=== PATIENT | female | born 1990 | race Two or more races ===

== ENCOUNTER 2019-11-11 14:12 | Emergency (ER) | payer MEDICAID ==
[~2019-11-11] VITALS: Ht 172.7 cm; Wt 110.2 kg
[2019-11-11 14:57] LABS: Basophils # (auto) 0.1 uL; Basophils % (auto) 1.2 % (0.0-2.0); Eosinophils # (auto) 0.3 uL; Eosinophils % (auto) 3.3 % (0.0-7.0); Hematocrit 39.7 % (36.0-46.0); Hemoglobin 13.5 g/dL (12.2-16.2); Lymphocytes # (auto) 2.3 uL; Lymphocytes % (auto) 23.4 % (10.0-50.0); Mean Corpuscular Hemoglobin 28.9 pg (28.0-32.0); Mean Corpuscular Volume 85.1 fL (80.0-100.0); Monocytes # (auto) 0.7 uL; Neutrophils # (auto) 6.5 uL; Neutrophils % (auto) 65.1 % (37.0-80.0); Nucleated Red Blood Cells % 0.1 %; Platelet Count (auto) 282 10^3/uL (140-450); Red Blood Cells 4.66 10^6/uL (4.0-5.20)
[2019-11-11 15:14] LABS: Alanine Aminotransferase 51 U/L (13-56); Albumin 3.7 g/dL (3.4-5.0); Anion Gap 6 (5-15); Aspartate Aminotransferase 30 U/L (15-37); BUN/Creatinine Ratio 21.2; Blood Urea Nitrogen 14 mg/dL (7-18); Calcium 8.6 mg/dL (8.5-10.1); Carbon Dioxide 24 mmol/L (21-32); Chloride 109 mmol/L (98-107); GFR African American 136 mL/min; GFR Non-African American 113 mL/min; Glucose 93 mg/dL (74-106); Potassium 3.5 mmol/L (3.5-5.1); Sodium 139 mmol/L (136-145)
[2019-11-11] MEDS ORDERED: cefTRIAXone W LIDOCAINE 1 GM IM IM ONE (15:15)
[2019-11-11 15:17] LABS: INR 0.96 (0.9-1.15); Partial Thromboplastin Time 28.4 sec (23.64-32.05)
[2019-11-11 15:22] VITALS: BP 128/85
[2019-11-11 15:22] LABS: Alkaline Phosphatase 103 U/L (45-117); Bilirubin, Total 0.3 mg/dL (0.2-1.0); Total Protein 8.3 g/dL (6.4-8.2)
[2019-11-11] MEDS ORDERED: cefTRIAXone SOD 1,000 MG VL ONE (15:27)
[2019-11-11 15:46] LABS: Urine Bacteria FEW /hpf (None Seen); Urine Blood Negative /uL (Negative); Urine Mucus FEW (None Seen); Urine Specific Gravity 1.031 (1.001-1.035); Urine WBC 8 /hpf (0 - 5)
[2019-11-11 16:02] LABS: Alcohol, Urine < 3.0 mg/dL (0-5); Amphetamine Screen, Urine NEGATIVE (NEGATIVE); Barbiturate Scree,Urine NEGATIVE (NEGATIVE); Benzodiazephine Screen, Urine NEGATIVE (NEGATIVE); Cannabinoid Screen, Urine NEGATIVE (NEGATIVE); Cocaine Screen, Urine NEGATIVE (NEGATIVE); Opiate Scree,Urine NEGATIVE (NEGATIVE); Phencyclidine Screen, Urine NEGATIVE (NEGATIVE)
== END 2019-11-11 16:58 | disposition home or self-care (01) ==
LOC: ER 14:29
DX: R07.2 Precordial pain (principal); N39.0 Urinary tract infection, site not specified
CPT/HCPCS: 36415; 71046; 80053; 80307; 81001; 84484; 85025; 85610; 85730; 93005; 96372; 99284; J0696

== ENCOUNTER 2020-01-16 17:54 | Inpatient (IN) | payer MEDICAID ==
[~2020-01-16] VITALS: Ht 167.6 cm; Wt 110.1 kg
[2020-01-16] MEDS ORDERED: PANTOPRAZOLE 40 MG/10 ML VIAL INJ IV STA (18:05)
[2020-01-16] MEDS ORDERED: SODIUM CHLORIDE 0.9% 1,000 ML IVB ONE (18:05)
[2020-01-16] MEDS ORDERED: MORPHINE SULFATE 4 MG/ML SYR/VIAL IV ONE (18:15)
[2020-01-16] MEDS ORDERED: ONDANSETRON HCL 4 MG/2 ML VIAL IV ONE ×2 (18:15→21:15)
[2020-01-16 19:11] LABS: Basophils # (auto) 0.1 10 ^3/uL (0-0.2); Basophils % (auto) 0.9 % (0.0-2.0); Eosinophils # (auto) 0.1 10 ^3/uL (0-0.8); Eosinophils % (auto) 1.6 % (0.0-7.0); Hematocrit 37.4 % (36.0-46.0); Hemoglobin 12.7 g/dL (12.2-16.2); Lymphocytes % (auto) 33.3 % (10.0-50.0); Mean Corpuscular Hemoglobin 28.9 pg (28.0-32.0); Mean Corpuscular Hgb Conc. 34.1 g/dL (32.0-36.0); Monocytes # (auto) 0.7 10 ^3/uL (0-1.3); Neutrophils # (auto) 5.1 10 ^3/uL (1.6-8.6); Neutrophils % (auto) 56.2 % (37.0-80.0); Platelet Count (auto) 242 10^3/uL (140-450); Red Cell Distribution Width 13.8 % (11.8-14.3)
[2020-01-16 19:27] LABS: Albumin 3.5 g/dL (3.4-5.0); Calcium 8.1 mg/dL (8.5-10.1); Potassium 3.7 mmol/L (3.5-5.1)
[2020-01-16 19:30] LABS: BUN/Creatinine Ratio 16.7; Bilirubin, Total 0.3 mg/dL (0.2-1.0); Total Protein 7.3 g/dL (6.4-8.2)
[2020-01-16 20:32] LABS: Urine Bacteria NONE SEEN /hpf (None Seen); Urine Blood Negative /uL (Negative); Urine WBC 14 /hpf (0 - 5)
[2020-01-16] MEDS ORDERED: HYDROmorphone HCL 2 MG/ML VL IV ONE (21:15)
[2020-01-16] MEDS ORDERED: cefTRIAXone 1GM/50ML D5W 50 ML IV ONE (21:30)
[2020-01-16] MEDS ORDERED: ACETAMINOPHEN 325 MG TAB PO PRN (23:00)
[2020-01-16] MEDS ORDERED: TEMAZEPAM 15 MG CAP PO PRN (23:00)
[2020-01-17] VITALS (7 sets, daily range): BP systolic 109–161; BP diastolic 68–89
--- NOTE | 2020-01-17 01:19 | NUR ---
MS admit from ER [place] Kelly admitted to tele/MS after SBAR received. Patient oriented to TIMMY CACERES, RN primary RN, unit, room, bed, and unit policies regarding patient care and visiting hours. Patient weighed by bedscale and encouraged to call if they need something. All questions and concerns addressed, patient verbalized understanding. Note: PATIENT IS ALERT AND ORIENTED, AMBULATORY, DENIES ANY ABDOMINAL PAIN AT THIS TIME,INSTRUCTED ON DIET WHICH IS CLEAR LIQUIDS.
[2020-01-17] MEDS ORDERED: INFLUENZA QUAD 2019-2020 0.5ml SYRG IM ONE (01:45)
[2020-01-17 05:12] LABS: Basophils # (auto) 0.1 10 ^3/uL (0-0.2); Basophils % (auto) 0.9 % (0.0-2.0); Eosinophils # (auto) 0.1 10 ^3/uL (0-0.8); Hematocrit 39.2 % (36.0-46.0); Hemoglobin 13.2 g/dL (12.2-16.2); Lymphocytes # (auto) 2.2 10 ^3/uL (0.4-5.4); Lymphocytes % (auto) 30.5 % (10.0-50.0); Mean Corpuscular Hemoglobin 28.9 pg (28.0-32.0); Mean Corpuscular Hgb Conc. 33.7 g/dL (32.0-36.0); Mean Corpuscular Volume 85.6 fL (80.0-100.0); Monocytes # (auto) 0.5 10 ^3/uL (0-1.3); Monocytes % (auto) 6.6 % (0.0-12.0); Neutrophils # (auto) 4.3 10 ^3/uL (1.6-8.6); Platelet Count (auto) 225 10^3/uL (140-450); Red Blood Cells 4.58 10^6/uL (4.0-5.20); Red Cell Distribution Width 13.7 % (11.8-14.3); White Blood Cell 7.2 10^3/uL (4.4-10.8)
[2020-01-17 05:29] LABS: BUN/Creatinine Ratio 16.4; Calcium 8.5 mg/dL (8.5-10.1); Potassium 3.9 mmol/L (3.5-5.1)
[2020-01-17] MEDS: HYDROcodone-ACET 5/325MG TAB PO PRN (05:45)
--- NOTE | 2020-01-17 08:00 | NUR ---
RECEIVED PATIENT ALERT AND ORIENTED X4, NOT IN DISTRESS, CLEAR LUNG SOUNDS RR=18 DEEP BREATHING AND COUGHING WAS ENCOURAGED, DEMONSTRATED WELL, HEART R=78, ABDOMEN SOFT WITH ACTIVE BS, LAST BM=01/17/20 REPORTED, SKIN INTACT WARM TO TOUCH, RADIAL AND PEDAL PULSES PALPABLE, CAP REFILL <3 SECONDS, RESTING ON BED, HEAD OF BED ELEVATED, BED ON LOW POSITION, RAILS UP X2, CALL LIGHT ON REACH, WILL CONTINUE MONITORING.
[2020-01-17] MEDS: PANTOPRAZOLE 40 MG/10 ML VIAL INJ IV SCH (10:26)
[2020-01-17] MEDS: ONDANSETRON HCL 4 MG/2 ML VIAL IV PRN ×2 (13:38→19:52)
[2020-01-17] MEDS: MORPHINE SULFATE 4 MG/ML SYR/VIAL IV PRN ×2 (13:39→19:52)
[2020-01-17] MEDS ORDERED: DICYCLOMINE HCL 10 MG CAP PO PRN (14:15)
--- NOTE | 2020-01-17 15:11 | NUR ---
GI CONSULT WAS DONE, PENDING PELVIC US ORDERED BY GI DR., US WAS CONTACTED FOR UPDATES AND FOLLOW UP, WILL CONTINUE MONITORING.
--- NOTE | 2020-01-17 19:25 | NUR ---
RESTING ON BED, NOT IN DISTRESS, HEAD OF BED ELEVATED, BED ON LOW POSITION, RAILS UP X2, CALL LIGHT ON REACH, REPORT WAS GIVEN TO THE STILL OPERATOR GIN RN.
[2020-01-17] MEDS: cefTRIAXone 1GM/50ML D5W 50 ML IV SCH (21:05)
[2020-01-18 05:00] VITALS: BP 122/78
--- NOTE | 2020-01-18 08:00 | NUR ---
RECEIVED PATIENT ALERT AND ORIENTED X4, NOT IN DISTRESS, CLEAR SOUNDS IN BILATERAL LUNG LOBES, RR=20, DEEP BREATHING AND COUGHING ENCOURAGED, DEMONSTRATED WELL, NORMAL HEART BEAT AND RHYTHM, R=92, DENIED CHEST PAIN AND SOB, ABDOMEN SOFT WITH ACTIVE BS, LAST BM=01/16/20 REPORTED, SKIN INTACT WARM TO TOUCH, RADIAL AND PEDAL PULSES PALPABLE, CAP REFILL <3 SECONDS, RESTING ON BED, HEAD OF BED ELEVATED, BED ON LOW POSITION, RAILS UP X2, CALL LIGHT ON REACH, WILL CONTINUE MONITORING.
[2020-01-18 09:00] VITALS: BP 128/87
[2020-01-18] MEDS: PANTOPRAZOLE 40 MG/10 ML VIAL INJ IV SCH (09:43)
[2020-01-18] MEDS: ONDANSETRON HCL 4 MG/2 ML VIAL IV PRN ×2 (09:44→15:42)
[2020-01-18] MEDS: MORPHINE SULFATE 4 MG/ML SYR/VIAL IV PRN (09:44)
[2020-01-18 13:00] VITALS: BP 129/86
[2020-01-18] MEDS ORDERED: MORPHINE SULFATE 4 MG/ML SYR/VIAL IV PRN (13:30)
--- NOTE | 2020-01-18 14:00 | NUR ---
AERODYNAMICS TEACHER CONSULT WAS DONE, FOLLOW UP OUT PATIENT WAS SUGGESTED REPORTED, NOT 9IN DISTRESS, RESTING ON BED, WILL CONTINUE MONITORING.
--- NOTE | 2020-01-18 14:40 | NUR ---
DR. SPRINGER WAS PAGED FOR NOTIFICATION OF FITTER UP FOLLOW UP AND UPDATED, WAITING FOR CALL BACK, WILL CONTINUE MONITORING.
--- NOTE | 2020-01-18 19:20 | NUR ---
Opening Shift Note Received report from emilia Nuñez RN. Assumed care of patient, awake and alert. No S/S of distress/SOB but c/o of headache. Will give pain medication as ordered. Instructed on POC and to call for assist PRN, will continue to monitor for changes Q1hr and PRN.
--- NOTE | 2020-01-18 19:26 | NUR ---
RESTING ON BED, NOT IN DISTRESS, HEAD OF BED ELEVATED, BED ON LOW POSITION, RAILS UP X2, CALL LIGHT ON REACH, REPORT WAS GIVEN TO THE ORNAMENTAL METAL ERECTOR APPRENTICE RN.
[2020-01-18 22:00] VITALS: BP 112/73
[2020-01-18] MEDS: cefTRIAXone 1GM/50ML D5W 50 ML IV SCH (22:05)
--- NOTE | 2020-01-18 23:00 | NUR ---
IV removal IV to left AC infiltrated. IV DC'd with sterile technique, catheter fully intact. Pressure dressing applied to site. Patient tolerated procedure well.
--- NOTE | 2020-01-18 23:30 | NUR ---
IV insertion IV access obtained, via clean sterile technique by inserting 22 gauge catheter at right forearm after first attempt. IV secured properly. No trauma to site. Patient tolerated procedure well.
[2020-01-19] MEDS: HYDROcodone-ACET 5/325MG TAB PO PRN (02:30)
--- NOTE | 2020-01-19 02:30 | NUR ---
Given pain medication for pain to head and abd. Will monitor.
--- NOTE | 2020-01-19 04:44 | NUR ---
Patient is resting in bed with eyes closed, no distress noted
[2020-01-19 05:00] VITALS: BP 116/77
--- NOTE | 2020-01-19 08:00 | NUR ---
RECEIVED PATIENT ALERT AND ORIENTED X4, NOT IN DISTRESS, CLEAR LUNG SOUNDS IN BILATERAL UPPER AND LOWER LOBES RR=18 DEEP BREATHING AND COUGHING WAS ENCOURAGED, DEMONSTRATED WELL, HEART R=92, ABDOMEN SOFT WITH ACTIVE BS, LAST BM=01/16/20 REPORTED, SKIN INTACT WARM TO TOUCH, RADIAL AND PEDAL PULSES PALPABLE, CAP REFILL <3 SECONDS, RESTING ON BED, HEAD OF BED ELEVATED, BED ON LOW POSITION, RAILS UP X2, CALL LIGHT ON REACH, WILL CONTINUE MONITORING.
[2020-01-19 09:00] VITALS: BP 115/85
[2020-01-19] MEDS: PANTOPRAZOLE 40 MG/10 ML VIAL INJ IV SCH (10:06)
[2020-01-19] MEDS: ONDANSETRON HCL 4 MG/2 ML VIAL IV PRN (10:07)
[2020-01-19] MEDS ORDERED: KETOROLAC TROMETH 15 mg/ml 1ML VL IV ONE (10:15)
--- NOTE | 2020-01-19 11:30 | NUR ---
OUT OF BED AND AMBULATING ENCOURAGED, AMBULATED AROUND THE UNIT X2, BACK TO BED, RESTING AND WATCHING TV, PENDING D/C HOME ORDERED, WILL CONTINUE MONITORING.
[2020-01-19 13:00] VITALS: BP 113/71
--- NOTE | 2020-01-19 14:00 | NUR ---
REQUESTED EXCUSE FORM FROM WORK, DR. ALVARADO WAS NOTIFIED REQUESTED, PAPER IS PENDING REPORTED BY DR. SPRINGER.
--- NOTE | 2020-01-19 14:19 | NUR ---
NUTRITION ASSESSMENT NOTES Please refer to link notes of nutrition screen form filed under the intervention section of the plan of care for further details. Est. Energy Needs: 8985-1352 kcal (14-18 kcal/kg BW). Est. Protein Needs: 58-72 gms/day (0.8-1.0 gms/kg Adj.BW). Will continue to monitor pertinent labs and reassess nutrient need prn Addendum: 01/19/20 at [address] Amended: Links added.
--- NOTE | 2020-01-19 16:30 | NUR ---
WAITING FOR RELEASE FROM WORK PAPER, DR. SPRINGER WAS PAGED X3, WAITING FOR CALL BACK.
--- NOTE | 2020-01-19 16:47 | NUR ---
D/C EDUCATION AND INFORMATION WAS PROVIDED, VERBALIZED UNDERSTANDING, D/C RT. FA IV SITE, TOLERATED WELL, VS T=97.6 RR=16, SAT=96% P=77 DB=640/71, NOT IN DISTRESS, DENIED PAIN, WC PROVIDED, D/C HOME WALING, TOOK ALL BELONGINGS AND LEFT NOTHING BEHIND.
== END 2020-01-19 16:45 | disposition home or self-care (01) | DRG 532 ==
LOC: ER 17:54 → OVERFLOW 17:55 → WEST WING 23:35
PROVIDERS: ADMIT Nurse Practitioner; ATTEND Internal Medicine
DX: D25.9 Leiomyoma of uterus, unspecified (principal); E66.01 Morbid (severe) obesity due to excess calories; R11.0 Nausea; I10 Essential (primary) hypertension; N92.0 Excessive and frequent menstruation with regular cycle; N94.6 Dysmenorrhea, unspecified; Z68.39 Body mass index [BMI] 39.0-39.9, adult
CPT/HCPCS: 36415; 74176; 76705; 76856; 80048; 80053; 81001; 81025; 83690; 84702; 85025; 87086; 96365; 96375; 96376; C9113; G0378; J0696; J2405

== ENCOUNTER 2020-10-18 18:22 | Emergency (ER) | payer MEDICAID ==
[~2020-10-18] VITALS: Ht 172.7 cm; Wt 112.0 kg
[2020-10-18 19:56] LABS: Urine Bacteria FEW /hpf (None Seen); Urine Blood Negative /uL (Negative); Urine Mucus FEW (None Seen); Urine Specific Gravity 1.021 (1.001-1.035); Urine WBC 8 /hpf (0 - 5)
[2020-10-18 22:31] LABS: Basophils # (auto) 0.1 10 ^3/uL (0-0.2); Basophils % (auto) 1.1 % (0.0-2.0); Eosinophils # (auto) 0.3 10 ^3/uL (0-0.8); Eosinophils % (auto) 2.5 % (0.0-7.0); Hematocrit 32.4 % (36.0-46.0); Hemoglobin 9.9 g/dL (12.2-16.2); Lymphocytes # (auto) 3.4 10 ^3/uL (0.4-5.4); Lymphocytes % (auto) 32.6 % (10.0-50.0); Mean Corpuscular Hemoglobin 22.4 pg (28.0-32.0); Mean Corpuscular Hgb Conc. 30.5 g/dL (32.0-36.0); Mean Corpuscular Volume 73.4 fL (80.0-100.0); Monocytes # (auto) 0.7 10 ^3/uL (0-1.3); Monocytes % (auto) 6.4 % (0.0-12.0); Neutrophils # (auto) 5.9 10 ^3/uL (1.6-8.6); Neutrophils % (auto) 57.4 % (37.0-80.0); Platelet Count (auto) 317 10^3/uL (140-450); Red Blood Cells 4.41 10^6/uL (4.0-5.20); Red Cell Distribution Width 15.8 % (11.8-14.3); White Blood Cell 10.3 10^3/uL (4.4-10.8)
[2020-10-18 22:53] LABS: Potassium 3.9 mmol/L (3.5-5.1)
[2020-10-18 23:00] LABS: Albumin 3.6 g/dL (3.4-5.0); BUN/Creatinine Ratio 15.8; Bilirubin, Total 0.2 mg/dL (0.2-1.0); Calcium 8.4 mg/dL (8.5-10.1); Magnesium 2.3 mg/dL (1.6-2.6); Total Protein 7.7 g/dL (6.4-8.2)
[2020-10-19] MEDS ORDERED: cefTRIAXone SOD 1,000 MG VL ONE (04:21)
[2020-10-19] MEDS ORDERED: ACETAMINOPHEN 325 MG TAB PO ONE (06:15)
[2020-10-19] MEDS ORDERED: ONDANSETRON ODT 4 MG TAB PO ONE (06:15)
[2020-10-19 07:37] VITALS: BP 168/95
== END 2020-10-19 07:41 | disposition home or self-care (01) ==
LOC: ER 18:22
DX: K82.0 Obstruction of gallbladder (principal); N39.0 Urinary tract infection, site not specified
CPT/HCPCS: 36415; 76705; 80053; 81001; 83690; 83735; 85025; 99284; J0696; Q0162

== ENCOUNTER 2021-10-08 17:42 | Emergency (ER) | payer MEDICAID ==
[~2021-10-08] VITALS: Ht 172.7 cm; Wt 108.0 kg
[2021-10-08 20:02] LABS: Urine Bacteria NONE SEEN /hpf (None Seen); Urine Blood Negative /uL (Negative); Urine Specific Gravity 1.017 (1.001-1.035); Urine WBC 12 /hpf (0 - 5)
[2021-10-08 22:21] LABS: Basophils # (auto) 0.1 10 ^3/uL (0-0.2); Eosinophils # (auto) 0.1 10 ^3/uL (0-0.8); Lymphocytes # (auto) 2.3 10 ^3/uL (0.4-5.4); Monocytes # (auto) 0.6 10 ^3/uL (0-1.3)
[2021-10-08 22:25] LABS: Basophils % (auto) 0.7 % (0.0-2.0); Eosinophils % (auto) 1.6 % (0.0-7.0); Hemoglobin 12.1 g/dL (12.2-16.2); Mean Corpuscular Hemoglobin 24.3 pg (28.0-32.0); Mean Corpuscular Hgb Conc. 31.9 g/dL (32.0-36.0); Monocytes % (auto) 6.9 % (0.0-12.0); Neutrophils % (auto) 65.8 % (37.0-80.0); White Blood Cell 9.1 10^3/uL (4.4-10.8)
[2021-10-08 22:31] LABS: Red Cell Distribution Width 25.9 % (11.8-14.3)
[2021-10-08 22:37] LABS: INR 0.99 (0.9-1.15)
[2021-10-08 22:42] LABS: Albumin 3.6 g/dL (3.4-5.0); Magnesium 2.3 mg/dL (1.6-2.6); Potassium 4.5 mmol/L (3.5-5.1)
[2021-10-08 22:45] LABS: Bilirubin, Total 0.3 mg/dL (0.2-1.0); Total Protein 7.6 g/dL (6.4-8.2)
[2021-10-08 23:04] VITALS: BP 143/95
== END 2021-10-08 23:48 | disposition home or self-care (01) ==
LOC: ER 17:42
DX: O16.1 Unspecified maternal hypertension, first trimester (principal); O23.41 Unspecified infection of urinary tract in pregnancy, first trimester; N39.0 Urinary tract infection, site not specified; Z3A.01 Less than 8 weeks gestation of pregnancy
CPT/HCPCS: 36415; 76705; 76801; 76817; 80053; 81001; 82570; 83605; 83615; 83690; 83735; 84156; 84702; 85025; 85610

== ENCOUNTER 2022-01-01 18:29 | Emergency (ER) | payer MEDICAID ==
[~2022-01-01] VITALS: Ht 172.7 cm; Wt 109.8 kg
[2022-01-01] MEDS ORDERED: ACETAMINOPHEN 325 MG TAB PO ONE (23:30)
[2022-01-02 00:02] LABS: Urine Bacteria FEW /hpf (None Seen); Urine Blood Negative /uL (Negative); Urine Hyaline Cast MOD /lpf (0 - 2); Urine Mucus FEW (None Seen); Urine Specific Gravity 1.023 (1.001-1.035); Urine WBC 21 /hpf (0 - 5)
[2022-01-02] MEDS ORDERED: NITR-87 PO (00:29)
[2022-01-02 01:11] VITALS: BP 145/92
== END 2022-01-02 01:13 | disposition home or self-care (01) ==
LOC: ER 18:31
DX: O23.42 Unspecified infection of urinary tract in pregnancy, second trimester (principal); N39.0 Urinary tract infection, site not specified; Z3A.18 18 weeks gestation of pregnancy
CPT/HCPCS: 76805; 81001

== ENCOUNTER 2022-02-18 17:42 | Observation (INO) | payer MEDICAID ==
[~2022-02-18] VITALS: Ht 172.7 cm; Wt 105.2 kg
[~2022-02-18 17:42] MED LIST: NITR-87 PO
[2022-02-18 17:56] VITALS: BP 117/93
[2022-02-18 19:08] LABS: Basophils # (auto) 0.1 10 ^3/uL (0-0.2); Basophils % (auto) 0.7 % (0.0-2.0); Eosinophils # (auto) 0.1 10 ^3/uL (0-0.8); Eosinophils % (auto) 1.4 % (0.0-7.0); Hematocrit 33.7 % (36.0-46.0); Hemoglobin 12.1 g/dL (12.2-16.2); Lymphocytes # (auto) 1.8 10 ^3/uL (0.4-5.4); Lymphocytes % (auto) 21.1 % (10.0-50.0); Mean Corpuscular Hemoglobin 32.2 pg (28.0-32.0); Mean Corpuscular Hgb Conc. 35.9 g/dL (32.0-36.0); Mean Corpuscular Volume 89.6 fL (80.0-100.0); Monocytes # (auto) 0.7 10 ^3/uL (0-1.3); Monocytes % (auto) 8.1 % (0.0-12.0); Neutrophils % (auto) 68.7 % (37.0-80.0); Nucleated Red Blood Cells % 0.1 %; Red Blood Cells 3.76 10^6/uL (4.0-5.20); Red Cell Distribution Width 13.4 % (11.8-14.3); White Blood Cell 8.7 10^3/uL (4.4-10.8)
[2022-02-18 19:15] LABS: Urine Bacteria MOD /hpf (None Seen); Urine Blood Negative /uL (Negative); Urine Mucus FEW (None Seen); Urine Specific Gravity 1.036 (1.001-1.035); Urine WBC 14 /hpf (0 - 5)
[2022-02-18 19:19] LABS: Albumin 2.6 g/dL (3.4-5.0); Calcium 8.5 mg/dL (8.5-10.1); Potassium 3.6 mmol/L (3.5-5.1)
[2022-02-18 19:22] LABS: BUN/Creatinine Ratio 18.5; Bilirubin, Total 0.4 mg/dL (0.2-1.0); Total Protein 7.3 g/dL (6.4-8.2)
[2022-02-19] MEDS ORDERED: cefTRIAXone SOD 1,000 MG VL IM ONE (00:15)
[2022-02-19] MEDS ORDERED: TERBUTALINE SULFATE 1 MG/ML 1ML VIAL SC PRN (00:15)
== END 2022-02-19 01:41 | disposition home or self-care (01) ==
LOC: ER 17:42 → TELE 23:11 → LDRP 23:15
PROVIDERS: ADMIT Obstetrics & Gynecology; ATTEND Obstetrics & Gynecology
DX: O23.42 Unspecified infection of urinary tract in pregnancy, second trimester (principal); O99.891 Other specified diseases and conditions complicating pregnancy; M54.50 Low back pain, unspecified; O99.512 Diseases of the respiratory system complicating pregnancy, second trimester; J45.909 Unspecified asthma, uncomplicated; O35.9XX0 Maternal care for (suspected) fetal abnormality and damage, unspecified, not applicable or unspecified; Z3A.24 24 weeks gestation of pregnancy
CPT/HCPCS: 36415; 59025; 76805; 80053; 81001; 81002; 84702; 85025; 94760; 96372; G0378; J0696; J3105

== ENCOUNTER 2022-05-31 22:07 | Emergency (ER) | payer MEDICAID ==
[~2022-05-31] VITALS: Ht 172.7 cm; Wt 102.3 kg
[2022-06-01 01:35] LABS: Eosinophils # (auto) 0.2 10 ^3/uL (0-0.8); Hemoglobin 8.9 g/dL (12.2-16.2); Monocytes # (auto) 0.6 10 ^3/uL (0-1.3); Neutrophils # (auto) 6.7 10 ^3/uL (1.6-8.6)
[2022-06-01 01:37] LABS: Basophils # (auto) 0 10 ^3/uL (0-0.2); Basophils % (auto) 0.5 % (0.0-2.0); Eosinophils % (auto) 1.7 % (0.0-7.0); Hematocrit 27.4 % (36.0-46.0); Lymphocytes # (auto) 1.5 10 ^3/uL (0.4-5.4); Lymphocytes % (auto) 17.2 % (10.0-50.0); Mean Corpuscular Hemoglobin 26.8 pg (28.0-32.0); Mean Corpuscular Hgb Conc. 32.5 g/dL (32.0-36.0); Mean Corpuscular Volume 82.3 fL (80.0-100.0); Monocytes % (auto) 6.3 % (0.0-12.0); Neutrophils % (auto) 74.3 % (37.0-80.0); Nucleated Red Blood Cells % 0.2 %; Red Blood Cells 3.33 10^6/uL (4.0-5.20); Red Cell Distribution Width 15.1 % (11.8-14.3)
[2022-06-01 01:53] LABS: Albumin 2.9 g/dL (3.4-5.0); BUN/Creatinine Ratio 17.1; Calcium 8.7 mg/dL (8.5-10.1); Magnesium 2.1 mg/dL (1.6-2.6); Potassium 3.7 mmol/L (3.5-5.1)
[2022-06-01 01:55] LABS: Bilirubin, Total 0.4 mg/dL (0.2-1.0); Total Protein 7.3 g/dL (6.4-8.2)
[2022-06-01] MEDS ORDERED: ACETAMINOPHEN 325 MG TAB PO ONE (03:00)
[2022-06-01 04:28] LABS: Urine Bacteria FEW /hpf (None Seen); Urine Blood 3+ /uL (Negative); Urine Mucus FEW (None Seen); Urine Specific Gravity 1.024 (1.001-1.035); Urine WBC 153 /hpf (0 - 5)
[2022-06-01 08:57] LABS: BUN/Creatinine Ratio 28.6; Calcium 6.9 mg/dL (8.5-10.1)
[2022-06-01] MEDS ORDERED: IOHEXOL 350 MG/ML 100ML IJ ONE (09:26)
[2022-06-01] MEDS ORDERED: CALCIUM CHL 100MG/ML 500 MG in D5W 5% 100 ML IV ONE (11:45)
[2022-06-01] MEDS ORDERED: POTASSIUM EFFERVESENT TAB 25 MEQ PO ONE (11:45)
[2022-06-01] MEDS ORDERED: ACETAMINOPHEN 500 MG TAB PO ONE (14:45)
[2022-06-01] MEDS ORDERED: CIPR-173 PO (16:04)
[2022-06-01] MEDS ORDERED: ACET-1803 PO (16:04)
[2022-06-01 16:07] VITALS: BP 138/88
== END 2022-06-01 16:09 | disposition home or self-care (01) ==
LOC: ER 22:07
DX: N39.0 Urinary tract infection, site not specified (principal); B34.9 Viral infection, unspecified; E83.51 Hypocalcemia; E87.6 Hypokalemia; D50.9 Iron deficiency anemia, unspecified; R79.1 Abnormal coagulation profile; E44.0 Moderate protein-calorie malnutrition; Z68.34 Body mass index [BMI] 34.0-34.9, adult
CPT/HCPCS: 36415; 71045; 71275; 80048; 80053; 81001; 83735; 83880; 84439; 84443; 84484; 85025; 85379; 93005; 96365; 99285; J7060; Q9967

== ENCOUNTER 2022-12-10 16:21 | Emergency (ER) | payer SELFPAY ==
[~2022-12-10] VITALS: Ht 172.7 cm; Wt 94.0 kg
[~2022-12-10 16:21] MED LIST changes: +ACET-1803 PO; +CIPR-173 PO
[2022-12-10 17:11] VITALS: BP 136/88
[2022-12-10] MEDS ORDERED: cefTRIAXone SOD 1,000 MG VL IM ONE (17:45)
[2022-12-10] MEDS ORDERED: KETOROLAC TROMETH 60MG/2ML VIAL IM ONE (17:45)
[2022-12-10] MEDS ORDERED: AZIT500T66 PO (17:46)
[2022-12-10] MEDS ORDERED: IBUP800T27 PO (17:46)
== END 2022-12-10 18:18 | disposition home or self-care (01) ==
LOC: ER 16:21
DX: J03.90 Acute tonsillitis, unspecified (principal); R53.1 Weakness; J45.909 Unspecified asthma, uncomplicated; I10 Essential (primary) hypertension; Z79.899 Other long term (current) drug therapy
CPT/HCPCS: 96372; 99284; J0696; J1885

== ENCOUNTER 2023-02-21 10:05 | Emergency (ER) | payer MEDICAID ==
[~2023-02-21] VITALS: Ht 172.7 cm; Wt 99.6 kg
[~2023-02-21 10:05] MED LIST changes: +AZIT500T66 PO; +IBUP800T27 PO
[2023-02-21 11:27] LABS: Basophils # (auto) 0.2 10 ^3/uL (0-0.2); Eosinophils # (auto) 0 10 ^3/uL (0-0.8); Nucleated Red Blood Cells % 0.1 %; White Blood Cell 9.5 10^3/uL (4.4-10.8)
[2023-02-21 11:29] LABS: Basophils % (auto) 1.9 % (0.0-2.0); Eosinophils % (auto) 0.5 % (0.0-7.0); Hematocrit 31.5 % (36.0-46.0); Hemoglobin 10.4 g/dL (12.2-16.2); Lymphocytes # (auto) 1.5 10 ^3/uL (0.4-5.4); Lymphocytes % (auto) 16.3 % (10.0-50.0); Mean Corpuscular Hemoglobin 21.2 pg (28.0-32.0); Mean Corpuscular Hgb Conc. 32.9 g/dL (32.0-36.0); Mean Corpuscular Volume 64.6 fL (80.0-100.0); Monocytes # (auto) 0.6 10 ^3/uL (0-1.3); Monocytes % (auto) 5.9 % (0.0-12.0); Neutrophils # (auto) 7.1 10 ^3/uL (1.6-8.6); Neutrophils % (auto) 75.4 % (37.0-80.0); Red Blood Cells 4.88 10^6/uL (4.0-5.20); Red Cell Distribution Width 19.1 % (11.8-14.3)
[2023-02-21 11:43] LABS: Urine Bacteria NONE SEEN /hpf (None Seen); Urine Blood 2+ /uL (Negative); Urine Specific Gravity 1.016 (1.001-1.035); Urine WBC 1 /hpf (0 - 5)
[2023-02-21] MEDS ORDERED: ACETAMINOPHEN 325 MG TAB PO ONE (12:15)
[2023-02-21 12:30] LABS: Albumin 3.7 g/dL (3.4-5.0); Calcium 9.2 mg/dL (8.5-10.1); Potassium 4.2 mmol/L (3.5-5.1)
[2023-02-21 12:35] LABS: BUN/Creatinine Ratio 16.1 (10.0-20.0); Bilirubin, Total 0.5 mg/dL (0.2-1.0); Total Protein 7.6 g/dL (6.4-8.2)
[2023-02-21 15:14] VITALS: BP 140/81
[2023-02-21] MEDS ORDERED: CYCL-839 PO (15:57)
[2023-02-21] MEDS ORDERED: CYCLOBENZAPRINE HCL 10 MG TAB PO ONE (16:00)
== END 2023-02-21 16:11 | disposition home or self-care (01) ==
LOC: ER 10:08
DX: O20.0 Threatened abortion (principal); Z3A.01 Less than 8 weeks gestation of pregnancy
CPT/HCPCS: 36415; 76801; 76817; 80053; 81001; 84702; 85025; 86850; 86900; 86901

== ENCOUNTER 2025-09-23 10:44 | Emergency (ER) | payer MEDICAID ==
[~2025-09-23] VITALS: Ht 165.1 cm; Wt 113.5 kg
[~2025-09-23 10:44] MED LIST changes: +CYCL-839 PO; +IBUP-1456 PO; -IBUP800T27 PO
[2025-09-23 12:47] LABS: Mean Corpuscular Volume 76.3 fL (80.0-100.0)
[2025-09-23 12:50] LABS: Hematocrit 29.4 % (36.0-46.0); Hemoglobin 9.3 g/dL (12.2-16.2); Mean Corpuscular Hemoglobin 24.0 pg (28.0-32.0); Nucleated Red Blood Cells % 0.1 %
[2025-09-23 13:00] VITALS: PULSE 89; RESP 16; TEMP 98.9; O2SAT 99
[2025-09-23 13:07] LABS: Alanine Aminotransferase 24 U/L (7-40); Albumin 3.7 g/dL (3.2-4.8); Anion Gap 9 (5-15); BUN/Creatinine Ratio 11.4 (10.0-20.0); Bilirubin, Total 0.3 mg/dL (0.2-1.0); Calcium 8.9 mg/dL (8.7-10.4); Carbon Dioxide 26 mmol/L (20-31); Chloride 107 mmol/L (98-107); Glucose 91 mg/dL (74-106); Potassium 4.2 mmol/L (3.5-5.1); Sodium 142 mmol/L (136-145); Total Protein 6.7 g/dL (5.7-8.2)
[2025-09-23 13:09] LABS: Alkaline Phosphatase 120 U/L (46-116); Blood Urea Nitrogen 8 mg/dL (9-23)
--- NOTE | 2025-09-23 13:40 | ED.PDOC ---
History of Present Illness HPI Comments 35-year-old female brought in by ambulance being one-week and with a chief complaint of pelvic pain. Patient reports having had a vaginal one week ago at 33 weeks patient states on having had being discharged and having an immediate onset of pelvic pain associated with abdomen distention and tenderness. Patient states on delivering the he inflammation and . Patient notes on currently have a severe headache. Denies any other symptoms at this time. Denies chills, fever, N/V/D, SOB, CP. No other associated symptoms, modifiers, recent injuries or sick contacts present at this time. Chief Complaint: Pelvic Pain Time Seen by MD: 13:05 Primary Care Provider: ALTHEA Reviewed Notes: Nurses Notes, Fruit Thinner Machine Operator Notes, Medications, Allergies Allergies: Coded Allergies: NO KNOWN ALLERGIES (Unverified , 10/18/20) Home Meds Active Scripts Cyclobenzaprine Hcl (Cyclobenzaprine Hcl) 10 Mg Tab, 10 MG PO BID PRN, #14 TAB Prov:LEANDRA KRISHNAMURTHY MD 02/21/23 Ibuprofen (Ibuprofen) 800 Mg Tab, 1 TAB PO TID, #30 TAB Prov:DIANA VARGHESE 12/10/22 Azithromycin (Azithromycin) 500 Mg Tab, 1 TAB PO DAILY, #5 TAB Prov:DIANA VARGHESE 12/10/22 Acetaminophen (Acetaminophen ER 8 Hour) 650 Mg Tab, 650 MG PO TID for 10 Days, #30 TAB Prov:STUART GALLOWAY MD 06/01/22 Ciprofloxacin Hcl (Cipro) 500 Mg Tab, 1 TAB PO BID for 10 Days, #20 TAB Prov:STUART GALLOWAY MD 06/01/22 Nitrofurantoin Monohydrate Mac (Macrobid) 100 Mg Cap, 100 MG PO BID, #14 CAP Prov:TOMMY AMOS MD 01/02/22 Information Source: Patient Mode of Arrival: EMS Severity: Moderate Timing: Hours Duration: Since onset, Hours Prehospital treatment: None Past Medical History PAST MEDICAL HISTORY: Asthma, HTN Surgical History: Denies all surgeries WHISKEY REGAUGER History: Ovarian Cysts, Uterine Fibroids, Other Family History Family History: Reviewed,noncontributory to illness Social History Smoker: Non-Smoker Alcohol: Denies ETOH Use Drugs: Denies Drug Use Lives In: Home Constitutional: denies: chills, diaphoresis, fatigue, fever, malaise, sweats, weakness, others EENTM: denies: blurred vision, double vision, ear bleeding, ear discharge, ear drainage, ear pain, ear ringing, eye pain, eye redness, hearing loss, mouth pain, mouth swelling, nasal discharge, nose bleeding, nose congestion, nose pain, photophobia, tearing, throat pain, throat swelling, voice changes, others Respiratory: denies: cough, hemoptysis, orthopnea, SOB at rest, shortness of breath, SOB with excertion, stridor, wheezing, others Cardiovascular: denies: chest pain, dizzy spells, diaphoresis, Dyspnea on exertion, edema, irregular heart beat, left arm pain, lightheadedness, palpitations, PND, syncope, others Gastrointestinal: reports: abdominal pain (Pelvic pain status post one week ); denies: abdomen distended, blood streaked bowels, constipated, diarrhea, dysphagia, difficulty swallowing, hematemesis, melena, nausea, poor appetite, poor fluid intake, rectal bleeding, rectal pain, vomiting, others Genitourinary: denies: abnormal vagina bleeding, burning, dyspareunia, dysuria, flank pain, frequency, hematuria, incontinence, pain, , vagina discharge, urgency, others Neurological: denies: dizziness, fainting, headache, left sided numbness, left sided weakness, numbness, paresthesia, pre-existing deficit, right sided numbness, right sided weakness, seizure, speech problems, tingling, tremors, weakness, others Musculoskeletal: denies: back pain, gout, joint pain, joint swelling, muscle pain, muscle stiffness, neck pain, others Integumetry: denies: bruises, change in color, change in hair/nails, dryness, laceration, lesions, lumps, rash, wounds, others Allergic/Immunocompromised: denies: Difficulty Healing, Frequent Infections, Hives, Itching, others Hematologic/Lymphatic: denies: anemia, blood clots, easy bleeding, easy bruising, swollen glands, others Endocrine: denies: excessive hunger, excessive sweating, excessive thirst, excessive urination, flushing, intolerance to cold, intolerance to heat, unexplained weight gain, unexplained weight loss, others Psychiatric: denies: anxiety, bipolar disorder, depression, hopeless, panic disorder, schizophrenia, sleepless, suicidal, others All Other Systems: Reviewed and Negative Physical Exam Exam Comments Abdomen distention General Appearance: No Apparent Distress, Normal HEENT: Normal ENT Inspection, Pharynx Normal, TMs Normal Neck: Full Range of Motion, Non-Tender, Normal, Normal Inspection Respiratory: Chest Non-Tender, Lungs Clear, No Accessory Muscle Use, No Respira tory Distress, Normal Breath Sounds Cardiovascular: No Edema, No JVD, No Murmur, No Gallop, Normal Peripheral Pulses, Regular Rate/Rhythm Breast Exam: Deferred Gastrointestinal: No Organomegaly, Non Tender, No Pulsatile Mass, Normal Bowel Sounds, Soft Genitalia: Deferred Pelvic: Deferred Rectal: Deferred Extremities: No calf tenderness, Normal capillary refill, Normal inspection, Normal range of motion, Non-tender, No pedal edema Musculoskeletal : Apperance: Normal Neurologic: Alert, stroke belt sander operator II-XII nml as Tested, No Motor Deficits, Normal Affect, Normal Mood, No Sensory Deficits Cerebellar Function: Normal Reflexes: Normal Skin: Dry, Normal Color, Warm Lymphatic: No Adenopathy Was a procedure done? Was a procedure done?: No Differential Dx Considerations may include: ACS, CVA, viral syndrome, electrolyte abnormality, retained products of conception X-Ray, Labs, Meds, VS Vital Signs Date Time Temp Pulse Resp B/P (MAP) Pulse Ox O2 Delivery O2 Flow Rate FiO2 09/23/25 18:20 84 12 147/95 (112) 95 09/23/25 16:00 84 13 142/95 (111) 98 09/23/25 14:00 84 13 142/95 (111) 98 09/23/25 13:00 89 16 99 Nasal Cannula* 2 28 09/23/25 13:00 98.9 89 16 135/92 (106) 99 98.9 09/23/25 11:20 98.7 110 24 162/98 97 98.7 Lab Test 09/23/25 15:00 09/23/25 11:55 Range/Units Urine Color Light-orange Yellow Urine Clarity Clear Clear Urine pH 7.0 5.0-9.0 Urine Specific [place] 1.020 1.001-1.035 Urine Protein Trace H Negative Urine Ketones Negative Negative Urine Blood 3+ H Negative /uL Urine Nitrite Negative Negative Urine Bilirubin Negative Negative Urine Urobilinogen Normal Negative mg/dL Urine Leukocyte Esterase 2+ Negative /uL Urine RBC 270 0 - 4 /hpf Urine Microscopic WBC 34 H 0-5 /HPF Urine Squamous Epithelial Cells Few <5 /hpf Urine Bacteria None seen None Seen /hpf Urine Glucose Normal Normal mg/dL White Blood Count 6.8 4.4-10.8 10^3/uL Red Blood Count 3.86 L 4.0-5.20 10^6/uL Hemoglobin 9.3 L 12.2-16.2 g/dL Hematocrit 29.4 L 36.0-46.0 % Mean Corpuscular Volume 76.3 L 80.0-100.0 fL Mean Corpuscular Hemoglobin 24.0 L 28.0-32.0 pg Mean Corpuscular Hemoglobin Concent 31.5 L 32.0-36.0 g/dL Red Cell Distribution Width 18.7 H 11.8-14.3 % Platelet Count 308 140-450 10^3/uL Mean Platelet Volume 9.0 6.9-10.8 fL Neutrophils (%) (Auto) 72.8 37.0-80.0 % Lymphocytes (%) (Auto) 16.7 10.0-50.0 % Monocytes (%) (Auto) 6.8 0.0-12.0 % Eosinophils (%) (Auto) 2.9 0.0-7.0 % Basophils (%) (Auto) 0.8 0.0-2.0 % Neutrophils # (Auto) 5.0 1.6-8.6 10 ^3/uL Lymphocytes # (Auto) 1.1 0.4-5.4 10 ^3/uL Monocytes # (Auto) 0.5 0-1.3 10 ^3/uL Eosinophils # (Auto) 0.2 0-0.8 10 ^3/uL Basophils # (Auto) 0.1 0-0.2 10 ^3/uL Nucleated Red Blood Cells 0.1 % Sodium Level 142 136-145 mmol/L Potassium Level 4.2 3.5-5.1 mmol/L Chloride Level 107 98-107 mmol/L Carbon Dioxide Level 26 20-31 mmol/L Anion Gap 9 5-15 Blood Urea Nitrogen 8 L 9-23 mg/dL Creatinine 0.70 0.550-1.02 mg/dL Glomerular Filtration Rate Calc 116 >90 mL/min BUN/Creatinine Ratio 11.4 10.0-20.0 Serum Glucose 91 74-106 mg/dL Lactic Acid Level 0.8 0.4-2.0 mmol/L Calcium Level 8.9 8.7-10.4 mg/dL Total Bilirubin 0.3 0.2-1.0 mg/dL Aspartate Amino Transferase (AST) 19 13-40 U/L Alanine Aminotransferase (ALT) 24 7-40 U/L Alkaline Phosphatase 120 H 46-116 U/L Total Protein 6.7 5.7-8.2 g/dL Albumin 3.7 3.2-4.8 g/dL Current Medications Medications (Trade) Dose Ordered Sig/Venkat Route Start Time Stop Time Status Last Admin Ketorolac Tromethamine (Toradol Injection) 15 mg ONCE ONCE IV 09/23/25 18:30 09/23/25 18:31 DC 09/23/25 18:26 Time of 1ST Reevaluation: 13:35 Reevaluation 1ST: Unchanged Patient Education/Counseling: Diagnosis, Treatment, Prognosis Family Education/Counseling: No Family Present SEPSIS Sepsis Screen Date sepsis recognized/suspect: Sep 23, 2025 Time Sepsis recognized/suspect: 1044 Recent Procedure: Yes Respiratory Rate >20: Yes Heart Rate >90: Yes Temp<36 C (96.8 F) or >38.3 C: No SBP <90 or MAP <65 mmHG: No New Acute Mental Status Change: No Is the patient on CPAP, BIPAP,: No Physician Orders Blood Culture (09/23/25 11:33) Ct Ab Pel With Iv Con Only (09/23/25 14:59) Pelvic (09/23/25 17:28) Morphine Sulfate Injection (09/23/25 19:00) Ondansetron Hcl (Zofran) (09/23/25 19:00) Vital Signs Date Time Temp Pulse Resp B/P (MAP) Pulse Ox O2 Delivery O2 Flow Rate FiO2 09/23/25 18:20 84 12 147/95 (112) 95 09/23/25 16:00 84 13 142/95 (111) 98 09/23/25 14:00 84 13 142/95 (111) 98 09/23/25 13:00 89 16 99 Nasal Cannula* 2 28 09/23/25 13:00 98.9 89 16 135/92 (106) 99 98.9 09/23/25 11:20 98.7 110 24 162/98 97 98.7 Laboratory Tests Test 09/23/25 11:55 Lactic Acid Level 0.8 mmol/L (0.4-2.0) White Blood Count 6.8 10^3/uL (4.4-10.8) Medications Medications Dose Ordered Sig/Venkat Route Start Time Stop Time Status Last Admin Dose Admin Ketorolac Tromethamine 15 mg ONCE ONCE IV 09/23/25 18:30 09/23/25 18:31 DC 09/23/25 18:26 Departure 1 Departure Time of Disposition: 18:56 (Patient's workup is benign however patient is having intractable pain. Using shared decision-making the the patient was offered admission to the hospital. Patient NSAID is going to leave and go to [place] where she gave and where her child is currently in the the NICU. ) Impression: Primary Impression: Intractable abdominal pain Additional Impressions: complication Lesion of left [place] kidney Disposition: 01 HOME / SELF CARE / HOMELESS Condition: Serious Additional Instructions: It is important that you follow up with your doctors MAHNAZ. If your symptoms worsen then please return to the ER. Discharged With: Booth Cashier Critical Care Note Critical Care Time?: No Stability Stability form required: No I personally scribed for ONESIMO CUEVAS MD ([email or web address]) on 09/23/25 at 13:40. Electronically submitted by Dionicio Arana ([email or web address]). ONESIMO CUEVAS MD Sep 23, 2025 13:40
[2025-09-23 15:25] LABS: Urine Protein, UAD TRACE (Negative)
[2025-09-23] MEDS ORDERED: IOHEXOL 300 MG/ML 100ML BOTTLE IJ ONE (16:02)
--- NOTE | 2025-09-23 16:53 | DVH ---
Exam: CT CT AB PEL WITH IV CON ONLY History: abdominal pain, recent vag delivery Comparison Study: None TECHNIQUE: Multidetector CT of the abdomen and pelvis with IV contrast. Axial, coronal and sagittal multiplanar reformats were obtained from the axial data set by the technologist. Radiation Dose Information: CT Dose: CTDI volume is 27.22 mGy. Dose-length product is 1537.58 mGy*cm FINDINGS: Minimal bibasilar atelectasis. Partially visualized heart is unremarkable. Mild hepatomegaly with hepatic steatosis. Mild splenomegaly. Otherwise, liver, spleen, gallbladder, pancreas and adrenal glands are unremarkable. 2 cm left renal hypodense lesion which does not measure as simple fluid. Otherwise, kidneys, ureters and urinary bladder are unremarkable. Heterogeneous appearance of the uterus. Endometrium appears heterogeneous and thickened of the 22 mm. Bilateral ovaries unremarkable. Stomach is unremarkable. Small bowel loops are unremarkable. Appendix is unremarkable. Small to moderate amount of fecal material within the colon. No evidence of intraperitoneal free air or free fluid. No evidence of aortic aneurysm or dissection. Shotty mesenteric lymph nodes. The soft tissues are unremarkable. Tiny fat containing umbilical hernia. No evidence of acute osseous abnormalities. IMPRESSION: Heterogeneous Uterus with a Heterogeneously thickened endometrium. Ultrasound is recommended for further evaluation. 2 cm left renal hypodense lesion which does not measure simple fluid. Renal ultrasound is recommended for further evaluation. Hepatomegaly with hepatic steatosis.
[2025-09-23 18:20] VITALS: BP 147/95; PULSE 84; RESP 12; O2SAT 95
[2025-09-23] MEDS: KETOROLAC TROMETH 30 MG/ML 1ML VIAL IV ONE (18:26)
--- NOTE | 2025-09-23 18:39 | DVH ---
INDICATION: better evaluate ct findings, status post vaginal delivery TECHNIQUE: Multiple real-time grayscale transabdominal sonographic images along with color and duplex Doppler of the uterus and ovaries were obtained. COMPARISON: US PELVIS COMPLETE on DOS: 08/11/24 FINDINGS: The uterus measures 16.2 x 8.2 x 7.2 cm. Endometrium is thickened, measuring 37 mm. There is fluid and debris within the endometrium, likely in keeping with blood products. No evidence of retained products of conception. Right ovary measures 4.5 x 2.7 x 2.8 cm with normal Doppler color flow Left ovary measures 5.8 x 3.2 x 3.9 cm with normal Doppler color flow No free fluid IMPRESSION: Thickened endometrium with debris and likely blood products. No evidence of retained products of conception. Normal sonographic appearance of the ovaries
[2025-09-23] MEDS ORDERED: ONDANSETRON HCL 4 MG/2 ML VIAL IV ONE (19:00)
[2025-09-23] MEDS ORDERED: MORPHINE SULFATE 4 MG/ML SYR/VIAL IV ONE (19:00)
== END 2025-09-23 19:46 | disposition home or self-care (01) ==
LOC: EDBD 10:44 → ER 10:44
DX: O26.833 Pregnancy related renal disease, third trimester (principal); N28.9 Disorder of kidney and ureter, unspecified; O90.89 Other complications of the puerperium, not elsewhere classified; R14.0 Abdominal distension (gaseous); R51.9 Headache, unspecified; I10 Essential (primary) hypertension; J45.909 Unspecified asthma, uncomplicated; Z86.018 Personal history of other benign neoplasm
CPT/HCPCS: 36415; 74177; 76856; 80053; 81001; 83605; 85025; 87040; 96374; 99285; J1885; Q9967